=== PATIENT | male | born 1935 | race Caucasian/White ===

== ENCOUNTER → 2018-05-13 | Outpatient (CLI) | payer OTHER ==
[~2018-05-13] MED LIST: ASPCH81X PO; ATOR-24 PO; CARV6.25 PO; HYDR-5688 PO; ISR/30 PO; LISI40TA PO; NTRGSL/4 UT; PANT40TA PO; PLAVIX75 PO
== END | disposition home or self-care (01) ==
LOC: C.LABSPEC 17:21
PROVIDERS: ATTEND Urology
DX: R31.0 Gross hematuria (principal)